=== PATIENT | male | born 1980 | race African-American/Black ===

== ENCOUNTER 2019-05-04 11:13 | Emergency (ER) | payer MEDICAID ==
[~2019-05-04] VITALS: Ht 177.8 cm; Wt 88.9 kg
[2019-05-04 11:20] VITALS: BP 125/82
[2019-05-04] MEDS ORDERED: cefTRIAXone SODIUM 250 MG VL IM ONE (12:45)
[2019-05-04] MEDS ORDERED: AZITHROMYCIN 250 MG TAB PO ONE (12:45)
[2019-05-04 13:14] LABS: Urine Bacteria FEW /hpf (None Seen); Urine Blood Negative /uL (Negative); Urine Mucus FEW (None Seen); Urine Specific Gravity 1.022 (1.001-1.035); Urine WBC 5 /hpf (0 - 3)
== END 2019-05-04 13:45 | disposition home or self-care (01) ==
LOC: ER 11:13
DX: N39.0 Urinary tract infection, site not specified (principal); F17.210 Nicotine dependence, cigarettes, uncomplicated; R82.71 Bacteriuria
CPT/HCPCS: 81001; 96372; 99283; J0696